=== PATIENT | male | born 1945 | race Caucasian/White ===

== ENCOUNTER → 2017-04-29 | Outpatient (CLI) | payer MEDICARE ==
[~2017-04-29] MED LIST: ASP81CT PO; FISH1CAP15 PO; MULT-963 PO; PNT40TEC PO; SCR1T1 PO
== END ==
LOC: CARD 12:31
PROVIDERS: ATTEND Nurse Practitioner Family
DX: R42 Dizziness and giddiness (principal); Z82.49 Family history of ischemic heart disease and other diseases of the circulatory system; M79.89 Other specified soft tissue disorders; R00.2 Palpitations
CPT/HCPCS: 93306; 93351

== ENCOUNTER 2018-04-07 05:52 | Outpatient (CLI) | payer MEDICARE ==
[~2018-04-07] VITALS: Ht 185.4 cm; Wt 96.0 kg
[2018-04-07] MEDS ORDERED: TAMS0.4C2 PO (15:15)
[2018-04-07] MEDS ORDERED: LEVO50TA6 PO (15:15)
[2018-04-07] MEDS ORDERED: FINA5TAB6 PO (15:15)
[2018-04-07] MEDS ORDERED: FISH1CAP15 PO (15:15)
== END 2018-04-07 15:19 | disposition home or self-care (01) ==
LOC: PREOP 05:52
PROVIDERS: ATTEND Specialist
DX: Z01.818 Encounter for other preprocedural examination (principal)

== ENCOUNTER 2018-04-10 07:49 | Day surgery (SDC) | payer MEDICARE ==
[~2018-04-10] VITALS: Ht 185.4 cm; Wt 96.0 kg
[~2018-04-10 07:49] MED LIST changes: +FINA5TAB6 PO; +LEVO50TA6 PO; +TAMS0.4C2 PO
--- OUTSIDE RECORDS SUMMARY | 2018-04-10 07:53 | XMS REPORT | Clinical Summary ---
Author Author User, [employer] Kiara Crews DO, FACP Address Unknown Phone Allergies, Adverse Reactions, Alerts Allergy Name Reaction Description Start Date Severity Status Provider No Known Allergies Kiara Crews Conditions or Problems Problem Name Problem Code Onset Date Status Entry Date Provider Comment Standard Description Annotate HEALTH SCREENING V70.0 Resolved Kiara Crews Routine general medical examination at a health care facility HIP PAIN 719.45 Resolved Kiara Crews Pain in joint involving pelvic region and thigh MUSCLE PAIN 729.1 Resolved Kiara Crews Myalgia and myositis, unspecified CORONARY ARTERY DISEASE, FAMILY HX V17.3 Active Kiara Crews Family history of ischemic heart disease HAND PAIN, RIGHT 729.5 Resolved Kiara Crews Pain in limb VARICOSE VEINS, LOWER EXTREMITIES 454.9 Active Kiara Crwes Asymptomatic varicose veins BENIGN PROSTATIC HYPERTROPHY, HX OF V13.8 Active Kiara Crews Personal history of other specified diseases CHEST PAIN, ATYPICAL 786.59 Resolved Kiara Crews Other chest pain GERD 530.81 Active Kiara Crews Esophageal reflux HIP PAIN 719.45 Resolved Kiara Crews Pain in joint involving pelvic region and thigh PUD 533.90 Active Kiara Crews Peptic ulcer of unspecified site, unspecified as acute or chronic, without mention of hemorrhage or perforation, without mention of obstruction ALLERGIC RHINITIS, SEASONAL 477.0 Active Kiara Crews Allergic rhinitis due to pollen URINARY FREQUENCY 788.41 Active Kiara Crews Urinary frequency Medication List Medication Instructions Start Date Stop Date Generic Name NDC Status Provider Patient Instruction FLOMAX 0.4 MG CAPS 1 PO DAILY TAMSULOSIN HCL 46191029816 Active Kiara Crews PREDNISONE 10 MG TAB 2 PO at one time for 3 days then 1 PO daily for 3 days PREDNISONE 16783524293 No Longer Active Kiara Crews FLUTICASONE PROPIONATE 50 MCG/ACT SUSP 2 puffs each nostril daily FLUTICASONE PROPIONATE 18301775003 Active Kiara Crews MULTIVITAMINS TABS 1 PO QD MULTIPLE VITAMIN Active Kiara Crews PROTONIX 40 MG TBEC 1 po qd PANTOPRAZOLE SODIUM 48910859457 No Longer Active Kiara Crews BABY ASPIRIN 81 MG CHEW 1 po daily ASPIRIN 04367289476 No Longer Active Kiara Crews FISH OIL DOUBLE STRENGTH 1200 MG CAPS 2 tablets once a day OMEGA-3 FATTY ACIDS 30538502541 Active Kiara Crews Immunizations Vaccine Administration Date Value Standard Description pneumococcal immunization administered Done [facility] pneumococcal polysaccharide vaccine, 23 valent dT (Diphtheria and Tetanus) booster given Done Td(adult) unspecified formulation Vital Signs Date Name Value Unit Range Description blood pressure, diastolic - 8462-4 70 mm[Hg] BP wall blood pressure, systolic - 8480-6 112 mm[Hg] BP sys pulse rate E&M - 8867-4 64 /min Heart rate respiratory rate E&M - 9279-1 14 /min Resp rate temperature E&M 98.2 [degF] Body temperature weight E&M - 3141-9 225 [lb_av] Weight Measured blood pressure, diastolic - 8462-4 85 mm[Hg] BP wall blood pressure, systolic - 8480-6 130 mm[Hg] BP sys pulse rate E&M - 8867-4 72 /min Heart rate respiratory rate E&M - 9279-1 14 /min Resp rate weight E&M - 3141-9 218 [lb_av] Weight Measured blood pressure, diastolic - 8462-4 78 mm[Hg] BP wall blood pressure, systolic - 8480-6 130 mm[Hg] BP sys pulse rate E&M - 8867-4 64 /min Heart rate respiratory rate E&M - 9279-1 12 /min Resp rate weight E&M - 3141-9 225 [lb_av] Weight Measured Diagnostic Results Date Name Value Unit Range Description Clinical Lists Update: CMP,FLP,TSH,HgA1c - Chemistry Estimated Glomerular Filtration Rate (calc) 77 mL/min/1.73m2 glucose, plasma fasting 98 mg/dL albumin, serum 3.8 g/dL alkaline phosphatase, serum 43 U/L urea nitrogen, blood 15 mg/dL calcium, serum 8.8 mg/dL chloride, serum 106 mmol/L cholesterol, serum 193 mg/dL carbon dioxide, venous blood 29.0 mmol/L creatinine, serum 1.0 mg/dL HDL cholesterol, serum 44.0 mg/dL hemoglobin A1C, blood, as % of total hemoglobin 5.7 % thyroid stimulating hormone, serum 3.80 u[iU]/mL LDL cholesterol, serum 128 mg/dL potassium, serum 4.4 mmol/L protein, total, serum 6.3 g/dL aspartate aminotransferase (SGOT), serum 18 U/L cholesterol/HDL ratio, serum, percent 4.4 anion gap, serum 8 sodium, serum 139 mmol/L triglyceride, serum, fasting 106 mg/dL bilirubin, serum, total 0.5 mg/dL alanine aminotransferase (SGPT), serum 16 U/L Office Visit: Dr Crews's Check Up: Established Patient Visit - Urinalysis urobilinogen, urine, semiquantitative (dipstick) 0.2 protein, urine, semiquantitative (dipstick) neg WBC urine on microscopy none {Cells}/[HPF] RBC urine by microscopy none bacteria, urine microscopy none hyaline casts, urine none /[LPF] epithelial cells, urine 0-5 /[LPF] mucus on urinalysis none blood in urine (hemoglobin) by dipstick neg glucose, urine, semiquantitative neg bilirubin, urine neg ketones, urine, by test strip neg nitrite, urine, semiquantitative neg pH, urine, semiquantitative 5.5 specific gravity, urine >1.030 appearance, urine Clear Yellow Encounters Code Encounter Date Provider Facility CPT-56881 Ofc Vst, Est Level III 16:07:05 CDT Kiara Crews DO, FACP CPT-52877 Ofc Vst, Est Level III 17:39:57 CDT Kiara Crews DO, FACP CPT-71991 Ofc Vst, Est Level III 19:04:57 MECHANICAL SHOVEL OPERATOR Kiara Crews DO, FACP CPT-53404 Ofc Vst, Est Level III 14:28:07 MECHANICAL SHOVEL OPERATOR Kiara Crews DO, FACP CPT-11951 Ofc Vst, New Level IV 14:56:32 CDT Kiara Crews DO, FACP Procedures Code Procedure Name Date Entry Date Standard Description CPT-G0439 Medicare Annual Wellness Visit 22:34:52 CDT CPT-G8445 E-Prescribing Not sent due to no medication given 19:04: 57 MECHANICAL SHOVEL OPERATOR CPT-G8445 E-Prescribing Not sent due to no medication given 15:27: 28 CDT CPT-76018 Preventive, Est, (40-64) 16:23:19 CDT
--- OUTSIDE RECORDS SUMMARY | 2018-04-10 07:53 | XMS REPORT | Continuity of Care Document ---
Author Author [facility] Organization [facility] Address Unknown Phone Unavailable Allergies Active Description Code Type Severity Reaction Onset Reported/Identified Relationship to Patient Clinical Status Yes No Known Drug Allergies [id number] Drug Allergy Unknown N/A 10/25/2012 Medications There is no data. Problems Date Dx Coded Attending Type Code Diagnosis Diagnosed By 10/27/2012 Ot 719.45 10/27/2012 Ot 786.50 10/27/2012 Ot V17.49 10/27/2012 Ot V58.66 10/24/2014 Ot 729.5 10/24/2014 Ot 785.1 10/24/2014 Ot 789.01 10/24/2014 Ot 593.9 10/24/2014 Ot 532.90 10/24/2014 Ot 535.40 10/24/2014 Ot V72.84 10/24/2014 Ot 719.45 10/24/2014 Ot V43.64 10/24/2014 Ot 719.45 10/24/2014 Ot V43.64 10/31/2014 Ot V76.51 12/20/2014 Ot V72.84 12/21/2014 Ot V72.84 04/25/2017 BAIMABRIDGER L ART PREPARATOR Ot R00.2 PALPITATIONS 04/29/2017 BAIMADIMITRISBRIDGER L ART PREPARATOR Ot R00.2 PALPITATIONS 05/01/2017 BAIMADIMITRISBRIDGER L ART PREPARATOR Ot M79.89 OTHER SPECIFIED SOFT TISSUE DISORDERS 05/01/2017 BAIMA BRIDGER L ART PREPARATOR Ot R42 DIZZINESS AND GIDDINESS 05/01/2017 BAIMADIMITRISBRIDGER L ART PREPARATOR Ot Z82.49 FAMILY HX OF ISCHEM HEART DIS AND OTH DI 05/07/2017 BAIMA BRIDGER L ART PREPARATOR Ot M79.89 OTHER SPECIFIED SOFT TISSUE DISORDERS 05/07/2017 BAIMADIMITRISBRIDGER L ART PREPARATOR Ot R00.2 PALPITATIONS 05/07/2017 BAIMA BRIDGER L ART PREPARATOR Ot R42 DIZZINESS AND GIDDINESS 05/07/2017 BAIMA, BRIDGER L ART PREPARATOR Ot Z82.49 FAMILY HX OF ISCHEM HEART DIS AND OTH DI 07/25/2017 BRIDGER MUIR ART PREPARATOR Ot M79.89 OTHER SPECIFIED SOFT TISSUE DISORDERS 07/25/2017 BAIBRIDGER MACKEY ART PREPARATOR Ot R00.2 PALPITATIONS 07/25/2017 BAIBRIDGER MACKEY ART PREPARATOR Ot R42 DIZZINESS AND GIDDINESS 07/25/2017 BRIDGER MUIR ART PREPARATOR Ot Z82.49 FAMILY HX OF ISCHEM HEART DIS AND OTH DI 07/30/2017 BRIDGER MUIR ART PREPARATOR Ot M79.89 OTHER SPECIFIED SOFT TISSUE DISORDERS 07/30/2017 BAIBRIDGER MACKEY ART PREPARATOR Ot R00.2 PALPITATIONS 07/30/2017 BAIBRIDGER MACKEY ART PREPARATOR Ot R42 DIZZINESS AND GIDDINESS 07/30/2017 BAIBRIDGER MACKEY ART PREPARATOR Ot Z82.49 FAMILY HX OF ISCHEM HEART DIS AND OTH DI Procedures There is no data. Results There is no data. Encounters ACCT No. Visit Date/Time Discharge Status Pt. Type Provider Facility Loc./Unit Complaint [id number] 05/31/2014 15:21:19 05/31/2014 23:59:59 CLS Outpatient Armando Hathaway [id number] 04/29/2017 12:31:00 04/29/2017 23:59:59 CLS Outpatient BRIDGER MUIRP [facility] CARD DIZZINESS R42, LEG SWELLING M79.89 [id number] 04/30/2013 09:54:00 04/30/2013 23:59:59 CLS Outpatient [id number] 02/11/2013 10:32:00 02/11/2013 23:59:59 CLS Outpatient [id number] 04/10/2018 09:30:00 PEN PreadVON Hernández MD [facility] CATARACT LEFT EYE [id number] 10/31/2014 06:28:00 Document Registration [id number] 10/26/2014 05:48:00 Document Registration [id number] 12/21/2012 06:08:00 Document Registration [id number] 12/16/2012 08:20:00 Document Registration [id number] 11/23/2012 08:24:00 Document Registration [id number] 11/16/2012 07:35:00 Document Registration [id number] 10/25/2012 18:15:00 Document Registration [id number] 04/20/2012 08:43:00 Document Registration [id number] 03/11/2011 16:12:00 Document Registration
--- OUTSIDE RECORDS SUMMARY | 2018-04-10 07:53 | XMS REPORT | Clinical Summary ---
Author Author User, [employer] Kiara Crews DO, FACP Address Unknown Phone [...] VARICOSE VEINS, LOWER EXTREMITIES 454.9 Active Kiara Crews Asymptomatic varicose veins BENIGN PROSTATIC HYPERTROPHY, HX [...] MG CAPS 1 PO DAILY TAMSULOSIN HCL 74372307545 Active Kiara Crews PREDNISONE 10 MG TAB 2 PO at one time for 3 days then 1 PO daily for 3 days PREDNISONE 28253462308 No Longer Active Kiara Crews FLUTICASONE PROPIONATE 50 MCG/ACT SUSP 2 puffs each nostril daily FLUTICASONE PROPIONATE 24899182297 Active Kiara Crews MULTIVITAMINS TABS 1 PO QD MULTIPLE VITAMIN Active Kiara Crews PROTONIX 40 MG TBEC 1 po qd PANTOPRAZOLE SODIUM 05920245443 No Longer Active Kiara Crews BABY ASPIRIN 81 MG CHEW 1 po daily ASPIRIN 78790270679 No Longer Active Kiara Crews FISH OIL DOUBLE STRENGTH 1200 MG CAPS 2 tablets once a day OMEGA-3 FATTY ACIDS 46308286602 Active Kiara Crews Immunizations Vaccine Administration Date Value Standard Description pneumococcal immunization administered Done [facility] pneumococcal polysaccharide vaccine, 23 valent dT (Diphtheria [...] Yellow Encounters Code Encounter Date Provider Facility CPT-19393 Ofc Vst, Est Level III 16:07:05 CDT Kiara Crews DO, FACP CPT-59325 Ofc Vst, Est Level III 17:39:57 CDT Kiara Crews DO, FACP CPT-54381 Ofc Vst, Est Level III 19:04:57 SAND MILL OPERATOR Kiara Crews DO, FACP CPT-84110 Ofc Vst, Est Level III 14:28:07 SAND MILL OPERATOR Kiara Crews DO, FACP CPT-88881 Ofc Vst, New Level IV 14:56:32 CDT Kiara Crews DO, FACP Procedures Code Procedure Name Date Entry Date Standard Description CPT-G0439 Medicare Annual Wellness Visit 22:34:52 CDT CPT-G8445 E-Prescribing Not sent due to no medication given 19:04: 57 SAND MILL OPERATOR CPT-G8445 E-Prescribing Not sent due to no medication given 15:27: 28 CDT CPT-75393 Preventive, Est, (40-64) 16:23:19 CDT
--- OUTSIDE RECORDS SUMMARY | 2018-04-10 07:53 | XMS REPORT | Clinical Summary ---
Author Author User, [email or web address] Kiara Crews DO, FACP Address Unknown Phone [...] MG CAPS 1 PO DAILY TAMSULOSIN HCL 23528669492 Active Kiara Crews PREDNISONE 10 MG TAB 2 PO at one time for 3 days then 1 PO daily for 3 days PREDNISONE 37905987736 No Longer Active Kiara Crews FLUTICASONE PROPIONATE 50 MCG/ACT SUSP 2 puffs each nostril daily FLUTICASONE PROPIONATE 48382366416 Active Kiraa Crews MULTIVITAMINS TABS 1 PO QD MULTIPLE VITAMIN Active Kiara Crews PROTONIX 40 MG TBEC 1 po qd PANTOPRAZOLE SODIUM 86053603372 No Longer Active Kiara Crews BABY ASPIRIN 81 MG CHEW 1 po daily ASPIRIN 32024830613 No Longer Active Kiara Crews FISH OIL DOUBLE STRENGTH 1200 MG CAPS 2 tablets once a day OMEGA-3 FATTY ACIDS 72653564170 Active Kiara Crews Immunizations Vaccine Administration Date Value Standard Description pneumococcal immunization administered Done [facility] pneumococcal polysaccharide vaccine, 23 valent dT (Diphtheria [...] Yellow Encounters Code Encounter Date Provider Facility CPT-48000 Ofc Vst, Est Level III 16:07:05 CDT Kiara Crews DO, FACP CPT-69582 Ofc Vst, Est Level III 17:39:57 CDT Kiara Crews DO, FACP CPT-93552 Ofc Vst, Est Level III 19:04:57 CONTRACTOR GENERAL BUILDING Kiara Crews DO, FACP CPT-06553 Ofc Vst, Est Level III 14:28:07 [employer] BUILDING Kiara Crews DO, FACP CPT-53399 Ofc Vst, New Level IV 14:56:32 CDT Kiara Crews DO, ANTHONY Procedures Code Procedure Name Date Entry Date Standard Description CPT-G0439 Medicare Annual Wellness Visit 22:34:52 CDT CPT-G8445 E-Prescribing Not sent due to no medication given 19:04: 57 CONTRACTOR GENERAL BUILDING CPT-G8445 E-Prescribing Not sent due to no medication given 15:27: 28 CDT CPT-67421 Preventive, Est, (40-64) 16:23:19 CDT
--- OUTSIDE RECORDS SUMMARY | 2018-04-10 07:53 | XMS REPORT | Clinical Summary ---
Author Author User, [employer] Kiara Crews DO, FACP Address Unknown [...] Crews Other chest pain GERD 530.81 Active Kiraa Crews Esophageal reflux HIP PAIN 719.45 Resolved [...] MG CAPS 1 PO DAILY TAMSULOSIN HCL 93864908496 Active Kiara Crews PREDNISONE 10 MG TAB 2 PO at one time for 3 days then 1 PO daily for 3 days PREDNISONE 88346794436 No Longer Active Kiara Crews FLUTICASONE PROPIONATE 50 MCG/ACT SUSP 2 puffs each nostril daily FLUTICASONE PROPIONATE 48319145209 Active Kiara Crews MULTIVITAMINS TABS 1 PO QD MULTIPLE VITAMIN Active Kiara Crews PROTONIX 40 MG TBEC 1 po qd PANTOPRAZOLE SODIUM 09890312271 No Longer Active Kiara Crews BABY ASPIRIN 81 MG CHEW 1 po daily ASPIRIN 25355123934 No Longer Active Kiara Crews FISH OIL DOUBLE STRENGTH 1200 MG CAPS 2 tablets once a day OMEGA-3 FATTY ACIDS 24696758060 Active Kiara Crews Immunizations Vaccine Administration Date Value Standard Description pneumococcal immunization administered Done [facility] pneumococcal polysaccharide vaccine, 23 valent dT (Diphtheria [...] Yellow Encounters Code Encounter Date Provider Facility CPT-57432 Ofc Vst, Est Level III 16:07:05 CDT Kiara Crews DO, FACP CPT-85226 Ofc Vst, Est Level III 17:39:57 CDT Kiara Crews DO, FACP CPT-57416 Ofc Vst, Est Level III 19:04:57 CAD DRAFTSMAN Kiara Crews DO, FACP CPT-47816 Ofc Vst, Est Level III 14:28:07 CAD DRAFTSMAN Kiara Crews DO, FACP CPT-64171 Ofc Vst, New Level IV 14:56:32 CDT Kiara Crews DO, ANTHONY Procedures Code Procedure Name Date Entry Date Standard Description CPT-G0439 Medicare Annual Wellness Visit 22:34:52 CDT CPT-G8445 E-Prescribing Not sent due to no medication given 19:04: 57 CAD DRAFTSMAN CPT-G8445 E-Prescribing Not sent due to no medication given 15:27: 28 CDT CPT-00186 Preventive, Est, (40-64) 16:23:19 CDT
[2018-04-10] MEDS ORDERED: LIDOCAINE PF 1% 2 ML AMP IR PRN (08:00)
[2018-04-10] MEDS ORDERED: VANCOMYCIN/BSS (COMPOUNDED) 10 MG/ML SYR OP ONE (08:00)
[2018-04-10] MEDS ORDERED: TIMOLOL MALEATE 0.5% 5 ML (TIMOPTIC) BTL OU PRN (08:00)
[2018-04-10] MEDS ORDERED: POVIDONE (BETADINE) OPHTH SOLN 5% 30 ML OP ONE (08:00)
[2018-04-10] MEDS ORDERED: EPINEPHrine INJECTION 1 MG/ML AMP INJ ONE ×2 (08:00→08:45)
[2018-04-10 08:15] VITALS: BP 117/71
[2018-04-10] MEDS: TETRACAINE 0.5% OPHTH SOLN 4 ML BTL (SINGLE DOSE ONLY) OU PRN ×4 (08:16→08:33)
[2018-04-10] MEDS: CYCLOPENTOLATE 1% (CYCLOGYL) 2 ML DROPS OP SCH ×3 (08:23→08:33)
[2018-04-10] MEDS: PHENYLEPHRINE 10% OPHTH (NEO-SYN) 5 ML BTL OU SCH ×3 (08:23→08:33)
[2018-04-10] MEDS ORDERED: MIDAZOLAM 2 MG/2 ML (VERSED) VIAL ONE (08:37)
--- NOTE | 2018-04-10 08:59 | Ophthalmologist Pre-Op Note ---
Pre-Operative Progress Note H&P Reviewed The H&P was reviewed, patient examined and no changes noted. Date H&P Reviewed: Apr 10, 2018 Time H&P Reviewed: 08:59 Pre-Op Dx Cataract, Left Eye VON MONTEZ MD Apr 10, 2018 08:59
--- NOTE | 2018-04-10 09:32 | Ophthalmology Operative Report ---
Cataract removal/placement IOL PREOPERATIVE DIAGNOSIS: Cataract Left Eye POSTOPERATIVE DIAGNOSIS: Cataract Left Eye PROCEDURE: Cataract removal and placement of posterior chamber implant, left eye SURGEON: Gabe Montez ANESTHESIA: Topical with sedation COMPLICATIONS: None ESTIMATED BLOOD LOSS: Minimal DESCRIPTION OF PROCEDURE: After proper informed consent was obtained, the patient, a 72 male, was taken to the Operating Room and the left eye was anesthetized with tetracaine. The left eye was then prepped and draped in the usual manner. A wire lid speculum was placed. A paracentesis was made at the left hand position. Preservative free lidocaine was injected into the anterior chamber followed by viscoelastic. A clear corneal incision was made in the temporal position. A capsulorrhexis was preformed and the central nuclear and cortical material were removed. The posterior capsule was polished and an Livan 20.5 SN6T5 IOL was placed into the capsular bag. The residual viscoelastic was aspirated and balanced saline solution was injected into the anterior chamber. Vancomycin was injected into the anterior chamber. The wound was checked and found to be water tight. The patient tolerated the procedure well without complications. GABE MONTEZ MD Apr 10, 2018 09:32
[2018-04-10 09:45] VITALS: BP 103/72
--- NOTE | 2018-04-10 09:47 | Anesthesia-General Post-Op ---
MAC Patient Condition Mental Status/LOC: Same as Preop Cardiovascular: Satisfactory Nausea/Vomiting: Absent Respiratory: Satisfactory Pain: Controlled Complications: Absent Post Op Complications Complications None Follow Up Care/Instructions Patient Instructions None needed. Anesthesiology Discharge Order Discharge Order Patient is doing well, no complaints, stable vital signs, no apparent adverse anesthesia problems. No complications reported per nursing. JOANN COOK CRNA Apr 10, 2018 09:47
== END 2018-04-10 09:45 | disposition home or self-care (01) ==
LOC: SDC 07:49
PROVIDERS: ATTEND Specialist
DX: H26.9 Unspecified cataract (principal); Z87.891 Personal history of nicotine dependence

== ENCOUNTER → 2018-11-25 | Outpatient (CLI) | payer MEDICARE ==
--- NOTE | 2018-11-25 08:45 | Diagnostic Imaging Report ---
INDICATION: Right shoulder pain. TIME OF EXAM: 8:22 AM 3 views of the right shoulder were obtained. FINDINGS: Glenohumeral and acromioclavicular alignment are normal. Acromiohumeral space is normal. No fracture or dislocation is seen. IMPRESSION: No acute bony abnormality is detected. Dictated by: Dictated on workstation # [id number]
== END ==
LOC: RAD 08:10
PROVIDERS: ATTEND Internal Medicine
DX: M25.511 Pain in right shoulder (principal)
CPT/HCPCS: 73030

== ENCOUNTER → 2018-12-03 | Outpatient (CLI) | payer MEDICARE ==
--- NOTE | 2018-12-03 10:21 | Diagnostic Imaging Report ---
PROCEDURE: MRI right joint upper extremity without contrast. TECHNIQUE: Multiplanar, multisequence MR imaging of the right shoulder was performed without contrast. COMPARISON: Right shoulder radiographs of 11/25/2018 INDICATION: Right shoulder pain. FINDINGS: Rotator cuff: No high-grade partial full thickness rotator cuff tear. Low-grade partial-thickness bursal sided fraying/tearing of the anterior supraspinatus is present. There is also low-grade partial-thickness interstitial tearing at the conjoint insertional fibers of the supraspinatus infraspinatus. No rotator cuff muscle atrophy or denervation edema. Glenoid labrum: By non-arthrogram imaging, the glenoid labrum appears intact. No para-labral cyst. Long head of biceps: Partial-thickness split longitudinal tearing in the extra scapular segment long head of biceps. Mild tendinopathy is present in the intracapsular segment long head of the biceps. The origin of the long head of biceps at the supraglenoid tubercle remains intact. Bones and cartilage: Humeral head is normal in morphology without fracture or focal osseous lesion. No glenohumeral chondromalacia. Moderate hypertrophic degenerative changes of the acromioclavicular joint including small inferior projecting osteophytes. Soft tissues: No glenohumeral joint effusion. Mild inflammation and edema in the subacromial and subdeltoid space may relate to mild bursitis. No MRI features of adhesive capsulitis. IMPRESSION: 1. Low-grade partial-thickness bursal sided fraying of the anterior supraspinatus and hypertrophic degenerative changes of the acromioclavicular are features that may relate to subacromial impingement. 2. Low-grade partial-thickness interstitial tearing of the conjoint insertional fibers of the supraspinatus and infraspinatus. No cuff atrophy. 3. Intracapsular segment tendinopathy of the long head of biceps, which remains intact. Dictated by: Dictated on workstation # [id number]
== END ==
LOC: RAD 08:26
PROVIDERS: ATTEND Nurse Practitioner Family
DX: M75.101 Unspecified rotator cuff tear or rupture of right shoulder, not specified as traumatic (principal); M67.813 Other specified disorders of tendon, right shoulder; M19.011 Primary osteoarthritis, right shoulder
CPT/HCPCS: 73221

== ENCOUNTER → 2019-07-26 | Outpatient (CLI) | payer MEDICARE ==
[2019-07-26 17:50] LABS: BILIRUBIN,URINE NEGATIVE (NEGATIVE); CLARITY,URINE CLEAR; COLOR,URINE YELLOW; GLUCOSE, URINE (UA) NEGATIVE (NEGATIVE); KETONES,URINE NEGATIVE (NEGATIVE); LEUKOCYTE ESTERASE ,URINE NEGATIVE (NEGATIVE); NITRITE,URINE NEGATIVE (NEGATIVE); PROTEIN,URINE NEGATIVE (NEGATIVE)
[2019-07-26 17:57] LABS: HEMOGLOBIN 13.4 G/DL (13.3-17.7); MEAN PLATELET VOLUME 9.4 FL (7.4-10.4); RED CELL DISTRIBUTION WIDTH 13.3 % (10.0-14.5); WHITE BLOOD COUNT 8.9 10^3/uL (4.3-11.0)
[2019-07-26 17:57] LABS: BACTERIA,URINE NEGATIVE /HPF; SQUAMOUS EPITHELIAL CELL,UR RARE /HPF
[2019-07-26 18:25] LABS: ALANINE AMINOTRANSFERASE 19 U/L (0-55); ALBUMIN 3.6 GM/DL (3.2-4.5); ALKALINE PHOSPHATASE 61 U/L (40-136); BILIRUBIN,TOTAL 0.4 MG/DL (0.1-1.0); BUN/CREATININE RATIO 20; CARBON DIOXIDE 22 MMOL/L (21-32); CHLORIDE 105 MMOL/L (98-107); CREATINE KINASE 75 U/L (30-200); GFR ESTIMATED > 60; GLUCOSE 97 MG/DL (70-105); POTASSIUM 4.1 MMOL/L (3.6-5.0); SODIUM 139 MMOL/L (135-145); TOTAL PROTEIN 7.5 GM/DL (6.4-8.2)
== END ==
LOC: LAB 17:28
PROVIDERS: ATTEND Internal Medicine
DX: M19.90 Unspecified osteoarthritis, unspecified site (principal); R50.9 Fever, unspecified; R53.83 Other fatigue
CPT/HCPCS: 36415; 80053; 81000; 82550; 83605; 83615; 85027; 85652; 86141